=== PATIENT | female | born 1995 | race Caucasian/White ===

== ENCOUNTER 2021-05-12 18:09 | Emergency (ER) | payer MEDICAID, OTHER ==
[~2021-05-12] VITALS: Ht 180.3 cm; Wt 65.8 kg
--- NOTE | 2021-05-12 18:40 | NUR ---
CALLED IN ED WAITING ROOM. NO RESPONSE.
[2021-05-12] MEDS ORDERED: MORPHINE SULFATE INJ 2 MG/ML DISP.SYRIN IV ONE (20:30)
[2021-05-12] MEDS ORDERED: ONDANSETRON HCL/PF 4 MG/2 ML VIAL IVP ONE (20:30)
[2021-05-12] MEDS ORDERED: IV NS 0.9% 1,000 ML BAG IV ONE (20:30)
[2021-05-12] MEDS ORDERED: MORPHINE SULFATE INJ 4 MG/ML DISP.SYRIN ONE (20:53)
[2021-05-12] MEDS ORDERED: CLINDAMYCIN 900 MG/6 ML VIAL ONE (20:53)
[2021-05-12] MEDS ORDERED: ONDANSETRON HCL/PF 4 MG/2 ML VIAL ONE (20:53)
[2021-05-12 20:57] LABS: BASOPHILS # (AUTO) 0.1 K/uL (0.0-0.2); BASOPHILS % (AUTO) 1.1 % (0.0-2.0); EOSINOPHILS % (AUTO) 2.2 % (0.0-6.0); HEMATOCRIT 32 % (33-45); HEMOGLOBIN 9.9 g/dL (11.5-14.8); LYMPHOCYTES # (AUTO) 1.6 K/uL (0.8-4.8); LYMPHOCYTES % (AUTO) 22.5 % (20.0-44.0); MEAN CORPUSCULAR HGB CONC 31 g/dl (31.0-36.0); MEAN CORPUSCULAR VOLUME 80 fL (82-100); MONOCYTES # (AUTO) 0.7 K/uL (0.1-1.30); MONOCYTES % (AUTO) 9.4 % (2.0-12.0); NEUTROPHILS # (AUTO) 4.7 K/uL (1.8-8.9); NEUTROPHILS % (AUTO) 64.8 % (43.0-81.0); PLATELET COUNT (AUTO) 338 K/uL (150-450); RED BLOOD CELL COUNT(AUTO) 4.01 MIL/uL (4.0-5.2); WHITE BLOOD COUNT (AUTO) 7.2 K/uL (4.3-11.0)
[2021-05-12] MEDS ORDERED: CLINDAMYCIN 900 MG in IV D5W 50 ML IV SCH (21:00)
[2021-05-12 21:05] LABS: CALCIUM, SERUM 8.7 mg/dL (8.5-10.1); CREATININE 0.7 mg/dL (0.6-1.3); POTASSIUM 3.7 mmol/L (3.5-5.1)
[2021-05-12] MEDS ORDERED: IV NS 0.9% 250 ML IV ONE (22:23)
[2021-05-12] MEDS ORDERED: IOHEXOL-300 100 ML VIAL IV ONE (22:23)
[2021-05-12] MEDS ORDERED: TDAP [DIPH/PERTUSSIS/TET] 0.5 ML VIAL IM ONE (22:30)
[2021-05-12 23:30] VITALS: BP 118/60
[2021-05-12] MEDS ORDERED: CLIN300C12 PO (23:53)
[2021-05-12] MEDS ORDERED: IBUP-1955 PO (23:55)
[2021-05-13] MEDS ORDERED: TDAP [DIPH/PERTUSSIS/TET] 0.5 ML VIAL IM ONE (00:10)
--- NOTE | 2021-05-13 00:35 | NUR ---
DC INSTRUCTIONS AND RX PROVIDED TO PATIENT.
== END 2021-05-13 00:22 | disposition home or self-care (01) ==
LOC: ER 18:09
DX: L97.529 Non-pressure chronic ulcer of other part of left foot with unspecified severity (principal); L97.519 Non-pressure chronic ulcer of other part of right foot with unspecified severity; Z88.0 Allergy status to penicillin; Z59.00 Homelessness unspecified
CPT/HCPCS: 36415; 73700; 73701; 80048; 82962; 85025; 87040 ×2; 90471; 90715; 96361; 96365; 96375; 99285; J2270; J2405; J3490 ×2; J7030; J7050; J7060 ×2; Q9967